=== PATIENT | male | born 1990 | race Hispanic/Latino ===

== ENCOUNTER 2016-09-26 23:34 | Emergency (ER) | payer OTHER ==
[2016-09-26 23:53] VITALS: BP 133/93; PULSE 95; RESP 16; TEMP 99.3; O2SAT 100
--- NOTE | 2016-09-27 00:22 | ED PDOC ---
HPI: Chest Pain Time Seen by Provider: 09/27/16 00:05 Chief Complaint (Nursing): Chest Pain Chief Complaint (Provider): chest pain and left arm pain History Per: Patient History/Exam Limitations: no limitations Onset/Duration Of Symptoms: Waxing/Waning Current Symptoms Are (Timing): Still Present Severity: Moderate Pain Scale Rating Of: 5 Quality: Sharp Associated Symptoms: denies: Nausea, Dyspnea, Diaphoresis Modifying Factors: None Exacerbating Factors: None Additional History Per: Patient Additional Complaint(s): 25 y/o male who denies any significant medical history presents to ED today with cc of chest pain that has been wax and waning for a couple of months and new pain in his left arm he noticed late last night when he got out of the shower; states he feels his left arm is swollen compared to the right. also reports his left side of his chest is swollen. chest pain is located mainly on the uppermost side of his chest, does not radiate and breathing does not affect it in anyway. Denies any family history of heart problems. Denies any sob, palpitations, nausea, abdominal pain, dizziness. Past Medical History Vital Signs: Last Vital Signs Temp 99.3 F 09/26/16 23:51 Pulse 95 H 09/26/16 23:51 Resp 16 09/26/16 23:51 BP 133/93 H 09/26/16 23:51 Pulse Ox 100 09/27/16 00:31 - Medical History PMH: No Chronic Diseases - Surgical History Surgical History: No Surg Hx - Family History Family History: States: No Known Family Hx - Allergies Allergies/Adverse Reactions: Allergies Allergy/AdvReac Type Severity Reaction Status Date / Time No Known Allergies Allergy Verified 09/26/16 23:53 Review of Systems Constitutional: Negative for: Fever, Chills Cardiovascular: Positive for: Chest Pain. Negative for: Palpitations, Orthopnea , Light Headedness Respiratory: Negative for: Cough, Shortness of Breath Gastrointestinal: Negative for: Nausea, Abdominal Pain Genitourinary Male: Negative for: Dysuria, Rash Musculoskeletal: Positive for: Arm Pain Skin: Positive for: Bruising. Negative for: Rash Neurological: Negative for: Weakness, Numbness, Dizziness Physical Exam - Reviewed Vital Signs Reviewed: Yes - Physical Exam Appears: Positive for: Non-toxic, No Acute Distress Cardiovascular/Chest: Positive for: Regular Rate, Rhythm. Negative for: Chest Non Tender, Friction Rub, Irregularly Irregular Respiratory: Positive for: Normal Breath Sounds. Negative for: Accessory Muscle Use, Wheezing, Respiratory Distress Pulses-Radial (L): 2+ Pulses-Radial (R): 2+ Gastrointestinal/Abdominal: Positive for: Normal Exam, Bowel Sounds, Soft. Negative for: Tenderness, Organomegaly Extremity: Positive for: Normal ROM. Negative for: Calf Tenderness Neurologic/Psych: Positive for: Alert, land manager II-XII, Oriented - Laboratory Results Result Diagrams: 09/27/16 00:24 09/27/16 00:24 - ECG ECG: Positive for: Interpreted By Nh ECG Rhythm: Positive for: Normal QRS, Normal ST Segment, Sinus Rhythm O2 Sat by Pulse Oximetry: 100 - Radiology X-Ray: Interpreted by Nh X-Ray Interpretation: No Acute Disease - Progress ED Course And Treament: EKG chest Xray cbc cmp troponin I Pain medication Re-evaluation Time: 00:25 Condition: Improved Disposition - Clinical Impression Clinical Impression: Atypical chest pain - Disposition Referrals: [facility] [Outside] Disposition: Routine/Home Disposition Time: 01:00 Condition: STABLE Instructions: Noncardiac Chest Pain (ED)
[2016-09-27 00:31] LABS: BASO % 0.5 % (0.0-2.0); EOS # 0.1 K/uL (0.0-0.7); EOS % 1.3 % (0.0-4.0); HEMOGLOBIN 16.1 g/dL (12.0-18.0); LYMPH # 1.5 K/uL (1.0-4.3); LYMPH % 22.7 % (20.0-40.0); MEAN CELL VOLUME 93.9 fl (80.0-94.0); MEAN CORPUSCULAR HEMOGLOBIN 31.6 pg (27.0-31.0); MEAN CORPUSCULAR HGB CONC 33.6 g/dL (33.0-37.0); MONO # 0.5 K/uL (0.0-0.8); MONO % 7.5 % (0.0-10.0); NEUT # 4.5 K/uL (1.8-7.0); NRBC % 0.2 % (0.0-0.0); RBC 5.11 Mil/uL (4.40-5.90); RED CELL DISTRIBUTION WIDTH 13.1 % (11.5-14.5); WHITE BLOOD COUNT 6.6 K/uL (4.8-10.8)
[2016-09-27 00:36] LABS: ALB/GLOB RATIO 1.8 (1.0-2.1); ALBUMIN 5.2 g/dL (3.5-5.0); ALT/SGPT 38 U/L (21-72); AST/SGOT 41 U/L (17-59); BLOOD UREA NITROGEN 13 mg/dl (9-20); CALCIUM 9.6 mg/dL (8.4-10.2); GFR AFRICAN-AMERICAN > 60; GFR NON-AFRICAN AMERICAN > 60
[2016-09-27 00:49] LABS: BARBITURATES, UR NEGATIVE (NEGATIVE); BENZODIAZEPINES, UR NEGATIVE (NEGATIVE); OPIATES, UR NEGATIVE (NEGATIVE); PHENCYCLIDINE, UR NEGATIVE (NEGATIVE)
--- NOTE | 2016-09-27 10:00 | RAD ---
HISTORY: chest pain COMPARISON: No prior. TECHNIQUE: Chest PA and lateral FINDINGS: LUNGS: No acute infiltrates. There is an elliptical shaped calcified appearing bony density overlying the the right anterior 1st rib. This could represent exostosis of possibly a bone island or calcified mild pleural-based abnormality. Followup nonemergent CT scan chest recommended. . PLEURA: No significant pleural effusion identified. No pneumothorax apparent. CARDIOVASCULAR: Normal. OSSEOUS STRUCTURES: No significant abnormalities. VISUALIZED UPPER ABDOMEN: Normal. OTHER FINDINGS: None. IMPRESSION: No acute cardiopulmonary disease. Elliptical shaped calcified appearing density overlying the right anterior 1st rib. This could represent an exostosis, possibly a bone island or abrupt pleural base calcification. . Recommend nonemergent CT scan chest for further evaluation.
--- NOTE | 2016-09-27 10:53 | CARD ---
APPROVED REPORT EKG Measurement Heart [id number] <Conclusion> Normal sinus rhythm with sinus arrhythmia Normal ECG
== END 2016-09-27 01:10 | disposition home or self-care (01) ==
LOC: H.ER 23:34
DX: R07.89 Other chest pain (principal)